=== PATIENT | male | born 1995 | race Caucasian/White ===

== ENCOUNTER 2025-08-22 15:29 | Emergency (ER) | payer OTHER, SELFPAY ==
[2025-08-22 15:31] VITALS: BP 130/88; PULSE 65; RESP 16; TEMP 36.8; O2SAT 100; BMI 21.9
--- NOTE | 2025-08-22 23:52 | EDS_ITS ---
HPI History of Present Illness Chief Complaint: Back Narrative Narrative: Patient is a 29-year-old male presenting to the emergency department for right upper back pain and right lower back pain for the past 4 weeks. He denies history of back pain. Denies any injuries to his back that he knows of. He states he has not been taking anything at home for pain control. He denies any chest pain, shortness of breath, abdominal pain, nausea or vomiting. Denies any leg numbness or weakness. Denies any bowel or bladder retention or incontinence. Denies any saddle anesthesia. Denies any IV drug use. Denies any fever or chills. Denies headache. PFSH PFSH Medical History no medical history Home Medications ?Medication ?Instructions ?Recorded ?Last Taken ?Type cyclobenzaprine 10 mg tablet 10 mg PO TID PRN Muscle S pasm #20 08/22/25 Unknown Rx TABLETS cyclobenzaprine 10 mg tablet 10 mg PO TID PRN Muscle S pasm #20 08/22/25 Unknown Rx TABLETS Allergy/AdvReac Type Severity Reaction Status Date / Time No Known Allergies Allergy Verified 08/22/25 15:31 Social History Smoking Status: Never smoker ROS ROS ED ROS Narrative See HPI EXAM Physical Exam Narrative Exam Narrative: Vital signs: Reviewed General: Alert and oriented x 3. No acute distress HEENT: Head is normocephalic and atraumatic, sinuses nontender, pupils equal round and reactive. Nares are patent. Oropharynx and throat exams normal. Neck: Supple without lymphadenopathy nontender. No midline cervical spinal tenderness palpation. No step-offs or deformities. No cervical paraspinal tenderness palpation. There is right trapezius muscle tenderness to palpation. There is no erythema or rashes to the shoulder or back. Cardiovascular: Regular rate and rhythm, no murmurs. No rubs or gallops. Normal S1 and S2 Respiratory: Clear to auscultation bilaterally. No wheezes, rales, rhonchi Abdominal: Soft and nontender. Normal bowel sounds. No guarding or rebound. Nonsurgical abdomen Extremities: No tenderness. No bruising. Normal range of motion. Normal sensation. Back: No midline thoracic or lumbar spinal tenderness to palpation. No step- offs or deformities. No paraspinal thoracic or lumbar tenderness to palpation. Neurological: Cranial nerves II through XII are grossly intact. Normal strength and sensation in all extremities normal cerebellar function The rest of the physical exam is unremarkable Const Vital Signs: 08/22/25 15:31 Temperature 98.3 F Temperature Source Oral Pulse Rate 65 Respiratory Rate 16 Blood Pressure 130/88 H Blood Pressure Mean 102 Pulse Ox 100 Oxygen Delivery Method Room Air MDM MDM MDM Narrative Medical decision making narrative: Patient is a 29-year-old male presenting to the emergency department for right upper and lower back pain. Patient was seen and examined. Vitals are stable. Patient resting in chair comfortably no acute distress. Patient offered IM Toradol for pain control, declines states that the pain is not that bad. He states that the right lower back pain has pretty much resolved at this time but he still having the right upper back pain. He does have trapezius muscle tenderness to palpation. There is no rashes to the back. There is no midline tenderness to palpation of the entire spine. There is no neurologic deficits. No indication for any imaging of the spine. He has no chest pain or shortness of breath to suspect ACS, PE or aortic pathology causing the right upper back pain. It is worsened by movement. Patient given prescription for Flexeril for home. Instructed to apply heat to the area to help with pain. Patient discharged from the Emergency Department. I do not feel that the patient's evaluation reveals any acute reason for admission at this time. I instructed them to either follow-up with their primary care physician or promptly return to the Emergency Department for reevaluation should symptoms worsen or new symptoms develop. I explained what symptoms would indicate the need to return to the emergency department. Shared decision making was used. The patient voiced understanding of the treatment plan and is agreeable with it. Clinical impression Right trapezius muscle strain History & Record Review Discussion w/independent historian: Patient and Significant other Discharge Plan Triage Chief Complaint: Back ED Provider: Eladia Osborn Dx/Rx/DC Orders Clinical Impression: Strain of right trapezius muscle Instructions: Head Tilt Upper Trapezius Stretch Prescriptions: New cyclobenzaprine 10 mg tablet 10 mg PO TID PRN (Reason: Muscle Spasm) Qty: 20 0RF cyclobenzaprine 10 mg tablet 10 mg PO TID PRN (Reason: Muscle Spasm) Qty: 20 0RF Primary Care Provider: Care Physician,No Primary Referrals: Anat Dickens MD [Med Staff - [facility] [employer] [facility], Internal Medicine] - 1 Week if not improving NOT,DEFINED [Non-Staff, None] Activity Restrictions/Additional Instructions: Take Motrin 600 mg every 8 hours for pain control. You can try massaging the area or applying heat to the muscle to help with pain. Take the flexeril as prescribed. Do not drive or operate heavy machinery when taking this medication it can make you sleepy. Your evaluation in the Emergency Department did not reveal any acute reason for admission. However, I want to emphasize that you may be early in the course of a disease process or illness even if it is not present . For this reason you should follow-up within 24 hours for reevaluation with either your primary care physician or if necessary back here in the Emergency Department. You should return to the Emergency Department immediately if your symptoms worsen or new symptoms develop. Print Language: Jordanian Disposition Disposition: Home, Self Care Discharge Date/Time: 08/22/25 17:46
== END 2025-08-22 17:46 | disposition home or self-care (01) ==
LOC: ED 17:22
PROVIDERS: Emergency Provider Student in an Organized Health Care Education/Training Program; Visit Provider Student in an Organized Health Care Education/Training Program
DX: S29.012A Strain of muscle and tendon of back wall of thorax, initial encounter (principal)
CPT/HCPCS: 99282